=== PATIENT | female | born 1975 ===

== ENCOUNTER 2018-05-10 06:41 | Inpatient (IN) | payer MEDICAID, OTHER ==
[2017-06-16 09:51] VITALS: BMI 44.9
[2018-05-10] MEDS: Lactated Ringer's 1,000 ML IV SCH (14:30)
[2018-05-10 15:12] LABS: BASO % 0.1 % (0.0-2.0); EOS % 0.5 % (0.0-4.0); HEMOGLOBIN 12.7 g/dL (11.0-16.0); LYMPH # 1.5 K/uL (1.0-4.3); LYMPH % 17.5 % (20.0-40.0); MEAN CELL VOLUME 82.3 fL (81.0-99.0); MEAN CORPUSCULAR HEMOGLOBIN 28.2 pg (27.0-31.0); MEAN CORPUSCULAR HGB CONC 34.3 g/dL (33.0-37.0); MEAN PLATELET VOLUME 8.6 fL (7.2-11.7); MONO # 0.4 K/uL (0.0-0.8); MONO % 4.4 % (0.0-10.0); NEUT # 6.8 K/uL (1.8-7.0); NEUT % 77.5 % (50.0-75.0); NRBC % 0.1 % (0.0-2.0); RBC 4.5 Mil/uL (3.80-5.20); RED CELL DISTRIBUTION WIDTH 15.6 % (11.5-14.5); WHITE BLOOD COUNT 8.8 K/uL (4.8-10.8)
[2018-05-10 15:19] LABS: SQUAMOUS EPITHIAL 8 /hpf (0-5); URINE BACTERIA MANY (<OCC); URINE BILIRUBIN NEGATIVE (NEGATIVE); URINE BLOOD 1+ (NEGATIVE); URINE CLARITY Hazy (Clear); URINE COLOR Yellow (YELLOW); URINE GLUCOSE (UA) NORMAL (Normal); URINE LEUKOCYTE ESTERASE 3+ Leu/uL (Negative); URINE PROTEIN NEGATIVE (NEGATIVE); URINE UROBILINOGEN NORMAL mg/dL (0.2-1.0)
[2018-05-10 15:27] LABS: ALBUMIN 3.4 g/dL (3.5-5.0); ALT/SGPT 14 U/L (9-52); AST/SGOT 19 U/L (14-36); BLOOD UREA NITROGEN 9 mg/dL (7-17); CALCIUM 9.7 mg/dl (8.6-10.4); GFR NON-AFRICAN AMERICAN > 60
[2018-05-10] MEDS ORDERED: Penicillin G 5 Million Unit Vial IVPB ONE ×2 (17:01→17:24)
--- NOTE | 2018-05-10 21:14 | OBHP ---
Datetime: 05/10/2018 16:06 IP Adm Impression: Postterm, intrauterine ; No Active Labor; Intact Membranes IP Admit Plan: Admit to unit; Initiate labor induction protocol Admit Comment, IP Provider: Scheduled for IOL for Postdates but did not come until afternoon hours w ith c/o of L sided pain HPI: Patient is a 42 year old female , LMP 07/27/17 with TIMOTHY 05/05/18 who presents for left lower back pain that started at 7pm last night. She states she was helping bathe her 2 year old chil d, when her pain started last night. She states she has had movement. Denies vaginal bleeding, loss of fluid. She denies contractions at this time. POBhx: Had 8 children, aged 21, 19, 17, 14, 11, 8, 4, 2.5 PGYNhx: LMP 07/27/17 Age of menarche 16, length of cycles average 28 days, lasts 4-5 days. Denies history of ovarian cysts or fibroids, Denies abnormal Pap smears, Denies history of STIs. Allergies: NKDA Medications: vitamins PMH: none PSH: none Family hx: Mother aged 70, healthy, Father Social hx: Denies tobacco, alcohol, drug use. Lives with her 5 kids and . ROS: denies fevers, chills, headache, dizziness, chest pain, shortness of breath, nausea, vomiting , leg pain, leg swelling. Assessment 42year old female with LMP 07/27/17 with TIMOTHY of 05/05/18 admitted for IOL for posdates Grandmultiparity Plan Admit to unit for IOL for postdates Unfavorable cervix and will cervidil for cervical ripening NST reactive Pelvic Type - PN: Adequate Extremities - PN: Normal Abdomen - PN: Normal Back - PN: Normal Breast - PN: Not Done Lungs - PN: Normal Heart - PN: Normal Thyroid - PN: Normal Neurologic - PN: Normal HEENT - PN: Normal General - PN: Normal Presentation-Admit: Vertex FHR - Baseline A Provider: 150 Membranes, Provider: Intact Contraction Comments Provider: Ocassional Comments, ACOG Physical Exam: Fundal height consistent with gestational age Gestation - Est Wks by US: 41.0 IP Hx Assessment: The History has been Reviewed and is Current EGA AdmitDate IP: 41.0 Vital Signs Provider: Reviewed; Within Normal Limits IP Chief Complaint: Scheduled induction of labor; Maternal discomfort NICHD Variability Prov Fetus A: Moderate 6-25bpm NICHD Accel Fetus A IP Provider: [id number] FHR Category Provider Fetus A: Category I NICHD Decel Fetus A IP Provider: None; Variable Dilatation, Provider: 2 Effacement, Provider: 30 Station, Provider: -3 Genitourinary Exam: Normal DTRs - PN: Normal
[2018-05-11] MEDS: Lactated Ringer's 1,000 ML IV SCH (04:10)
[2018-05-11] MEDS ORDERED: Nalbuphine HCL 10 mg/ml Ampule ONE (05:08)
[2018-05-11] MEDS ORDERED: Nalbuphine HCL 10 mg/ml Ampule IVP ONE (05:11)
[2018-05-11] MEDS ORDERED: Oxycodone/Acetaminophen 5/325 mg Tab PO PRN (06:37)
--- NOTE | 2018-05-11 06:55 | OBDS ---
DELIVERY PERSONNEL Delivery Doctor: Timoteo Jefferson MD Promotions Representative: Mary Jane Philip RN MATERNAL INFORMATION Delivery Anesthesia: None Medications in Delivery: Pitocin 20 units IV Estimated Blood Loss (ml): 200 mls Maternal Complications: None Provider Comments: of a viable Female from TOSHIA position and over an intact perineum. Apg ars 9_9 and BW 8lbs, 11 oz. EBL 200 Placenta and cord blood obtained and sent Pt and both tolerated the procedure well and remained in S_S condition LABOR SUMMARY EDC: 05/03/2018 00:00 No. Babies in Womb: 1 Attempted: No Labor Anesthesia: IV Sedation LABOR INFORMATION Reason for Induction: Postterm Onset of Labor: 05/11/2018 00:00 Complete Dilatation: 05/11/2018 05:45 Cervical Ripening Agents: Cervidil Oxytocin: N/A Group B Beta Strep: Positive Antibiotics # of Doses: 3 Antibiotics Time of Last Dose: 0400 Steroids Given: None Reason Steroids Not Administered: Not Applicable MEMBRANES Membranes Rupture Method: Spontaneous Rupture of Membranes: 05/11/2018 05:59 Length of Rupture (hrs): 0.00 Amniotic Fluid Color: Clear Amniotic Fluid Amount: Small STAGES OF LABOR Stage 1 hrs: 5 Stage 1 min: 45 Stage 2 hrs: 0 Stage 2 min: 14 Stage 3 hrs: 0 Stage 3 min: 1 Total Time in Labor hrs: 6 Total Time in Labor min: 0 VAGINAL DELIVERY Episiotomy: None Laceration Extension: N/A Laceration Type: None Initial Vag Sponge Count: 10 Final Vag Sponge Count: 10 Initial Vag Sharps Count: 0 Final Vag Sharps Count: 0 Sponge Count Correct: Yes; Vaginal Sweep Performed Sharps Count Correct: N/A BABY A INFORMATION Delivery Date/Time: 05/11/2018 05:59 Method of Delivery: Vaginal Born in Route : No : N/A Forceps: N/A Vacuum Extraction: N/A Shoulder Dystocia : No SHOULDER DYSTOCIA BABY A Infant Delivery Date/Time: 05/11/2018 05:59 PRESENTATION/POSITION BABY A Presentation: Cephalic Cephalic Presentation: Vertex PLACENTA INFORMATION BABY A Placenta Delivery Time : 05/11/2018 06:00 Placenta Method of Delivery: Spontaneous Placenta Status: Delivered SCORES BABY A Heart Rate 1 min: >100 bpm Resp Effort 1 min: Good Cry Reflex Irritability 1 min: Cough or Sneeze or Pulls Away Muscle Tone 1 min: Active Motion Color 1 min: Body [place], Extremities Blue SCORE 1 MIN: 9 Heart Rate 5 min: >100 bpm Resp Effort 5 min: Good Cry Reflex Irritability 5 min: Cough or Sneeze or Pulls Away Muscle Tone 5 min: Active Motion Color 5 min: Body [place], Extremities Blue SCORE 5 MIN: 9 INFANT INFORMATION BABY A Gestational Age at Delivery: 41.0 Gestational Status: Post-term Outcome : Liveborn Condition : Stable Infant Sex: Female IDENTIFICATION/MEDS BABY A ID Band Number: [id number] ID Band Location: Left Leg; Left Arm Sensor Applied: Yes Sensor Number: [id number] Sensor Location : Taped to Bed Vitamin K Given : Aquamephyton 1 mg IM; Left Thigh Erythromycin Given: Given Both Eyes WEIGHT/LENGTH BABY A Infant Birthweight (gms): 3955 Infant Weight (lb): 8 Infant Weight (oz): 11 Length Inches: 20.00 Infant Length cms: 50.8 CORD INFORMATION BABY A No. Cord Vessels: 3 Nuchal Cord : N/A Cord Blood Taken: Yes Infant Suction: Mouth ASSESSMENT BABY A Complications: None Physical Findings at Delivery: Within Normal Limits Respirations: Appears Normal Engineering Operator/ALS Called : Yes Infant Care By: DR UNDERWOOD Transferred To: Remains with Mother
[2018-05-11] MEDS: Multiple Vitamins Tab PO SCH (10:03)
[2018-05-12 07:17] LABS: BASO # 0.1 K/uL (0.0-0.2); BASO % 0.7 % (0.0-2.0); EOS # 0.1 K/uL (0.0-0.7); EOS % 1.3 % (0.0-4.0); HEMOGLOBIN 12.9 g/dL (11.0-16.0); LYMPH # 2.4 K/uL (1.0-4.3); LYMPH % 27.2 % (20.0-40.0); MEAN CELL VOLUME 82.6 fL (81.0-99.0); MEAN CORPUSCULAR HEMOGLOBIN 28.2 pg (27.0-31.0); MEAN CORPUSCULAR HGB CONC 34.1 g/dL (33.0-37.0); MEAN PLATELET VOLUME 8.1 fL (7.2-11.7); MONO # 0.4 K/uL (0.0-0.8); MONO % 4.2 % (0.0-10.0); NEUT # 5.8 K/uL (1.8-7.0); NEUT % 66.6 % (50.0-75.0); RBC 4.58 Mil/uL (3.80-5.20); RED CELL DISTRIBUTION WIDTH 15.9 % (11.5-14.5); WHITE BLOOD COUNT 8.8 K/uL (4.8-10.8)
[2018-05-12] MEDS: Multiple Vitamins Tab PO SCH (09:37)
--- NOTE | 2018-05-12 12:15 | OBPPN ---
Datetime: 05/12/2018 08:24 PP Pain Prov: Within normal limits PP Nausea Prov: Denies PP Flatus Prov: Yes PP BM Prov: No PP Breasts Prov: Normal PP Heart Prov: Normal PP Lungs Prov: Normal PP Abdomen/Uterus Prov: Normal PP Lochia Prov: Normal PP Vulva/Perineum Prov: Not Done PP CVA Tenderness Prov: Normal PP Comments Phys Exam Prov: Abdomen soft, nontender. Bowel sounds present. Fundus at the level of um bilicus. Uterus firm, nontender. PP Impression Prov: Normal progression PP Plan Prov: Continue present management PP Progress Note Prov: PPD1 Patient seen and examined at bedside. Patient complains of pain when she breastfeeds her baby. Jessica n well controlled currently. Patient tolerating regular diet. She is currently breast feeding, howeve r she feels as though she would like to bottle feed as well. She described moderate lochia. She adan es nausea, vomiting. She denies calf pain, chest pain, shortness of breath, fevers, chills. She admit s she had some sacral pain that she has had for the past month or so. She states she would like to malcolm ve her tubes tied for future contraception. A/P 42year old at 41 weeks s/p with PPD1 1. Vitals stable 2. labs reviewd, repeat tomorrow morning ordered 3. Encourage ambulation, breast feeding, however may switch to bottle feeding as necessary 4. Complete pelvic rest advised. 5. Patient encouraged to follow up with OB regarding tubal ligation Case discussed with Dr. Suzie Alejandre, PGY1 I have personally seen and examined the patient with resident. I agree with the above notation. continue routine post care Suzie Mhaoney - in house service attending. IP PP Procedures: None Vital Signs Provider PP: Reviewed; Within Normal Limits
[2018-05-13 00:11] VITALS: O2SAT 99
[2018-05-13 07:18] LABS: BASO % 0.4 % (0.0-2.0); EOS # 0.2 K/uL (0.0-0.7); EOS % 2.4 % (0.0-4.0); HEMOGLOBIN 12.5 g/dL (11.0-16.0); LYMPH % 25.5 % (20.0-40.0); MEAN CELL VOLUME 82.9 fL (81.0-99.0); MEAN CORPUSCULAR HEMOGLOBIN 28.4 pg (27.0-31.0); MEAN CORPUSCULAR HGB CONC 34.3 g/dL (33.0-37.0); MONO # 0.3 K/uL (0.0-0.8); MONO % 4.3 % (0.0-10.0); NEUT # 5.4 K/uL (1.8-7.0); NEUT % 67.4 % (50.0-75.0); NRBC % 0.1 % (0.0-2.0); RBC 4.41 Mil/uL (3.80-5.20)
[2018-05-13] MEDS: Multiple Vitamins Tab PO SCH (09:12)
--- NOTE | 2018-05-13 10:21 | OBDCSUM ---
Datetime: 05/13/2018 10:18 Discharged to, Provider: Home Follow up at, Provider: clinic Disch Instr Activity: Normal activity Disch Instr Diet: Regular Discharge Instructions, Provider: Routine instructions given Discharge Diagnosis, Provider: Term Delivered Discharge Time: 05/13/2018 10:18 Follow up in weeks, Provider: Kendrick Verdin Referrals: None Contraception discussed, Prov: Yes Disch Activity Restrictions: No sexual activity; Nothing in vagina - [place], tampons, douche Discharge Comment, Provider: nya yeboah Contraception after Delivery: Not Planning to Use
--- NOTE | 2018-05-13 10:21 | OBPPN ---
Datetime: 05/13/2018 10:18 PP Pain Prov: Within normal limits PP Nausea Prov: Denies PP Flatus Prov: Yes PP BM Prov: No PP Breasts Prov: Normal PP Heart Prov: Normal PP Lungs Prov: Normal PP Abdomen/Uterus Prov: Normal PP Lochia Prov: Normal PP Vulva/Perineum Prov: Normal PP CVA Tenderness Prov: Normal PP Extremities Prov: Normal PP C/S Incision Prov: Not Applicable PP Progress Prov: Normal PP Impression Prov: Normal progression PP Plan Prov: Continue present management; Discharge PP Progress Note Prov: pt seen adn examiend preort pain contorlled, ambuting, voidng, passign flatus , no BM, otleratign regualr diet withotu nause, vomitng, cp, sob, urinary complaint. pt is breat and bottel feedign and denies any sadness or depression VSS PE gen :N nad AAO x 3 RESP Ctab/l CVS: rrr, +S1/S2 BREAST: sot, NT, non enroged b/l ABD: soft, NT/ND, +BS, no guaridng, no rebound tendnerss, no rigdity FUNDUS: Firm, belwo level of umbiclus VE: minmal lochai, non fusl smelling EX:T negative jamal's sign, no calf tendnerness A/P S/p PPD #2 doignw ell dc home f/u clinic 6 week precation givne IP PP Procedures: None Vital Signs Provider PP: Reviewed; Within Normal Limits
[2018-05-13] MEDS ORDERED: Influenza Vaccine 60 MCG/0.5 ML SYR (3 yr & up) IM ONE (11:37)
[2018-05-13 11:44] VITALS: BP 108/78; PULSE 88; RESP 18; TEMP 97.2
== END 2018-05-13 18:30 | disposition home or self-care (01) | DRG 560 ==
LOC: C.4D 13:20 → C.4M 05-11 09:54
PROVIDERS: ADMIT Obstetrics & Gynecology; ATTEND Obstetrics & Gynecology
PROC: 3E0P7VZ Introduction of Hormone into Female Reproductive, Via Natural or Artificial Opening (ICD-10-PCS; 2018-05-10)
PROC: 10E0XZZ Delivery of Products of Conception, External Approach (ICD-10-PCS; principal; 2018-05-11)
DX: O48.0 Post-term pregnancy (principal); O99.824 Streptococcus B carrier state complicating childbirth; Z3A.41 41 weeks gestation of pregnancy; Z37.0 Single live birth

== ENCOUNTER 2018-10-15 17:54 | Emergency (ER) | payer SELFPAY ==
[2018-10-15 17:54] VITALS: BMI 44.9
[2018-10-15 18:10] VITALS: BP 106/73; PULSE 72; RESP 20; TEMP 98.3; O2SAT 98
[2018-10-15] MEDS ORDERED: Naproxen 550 mg Tab PO STA (19:09)
[2018-10-15] MEDS ORDERED: Naproxen 550 mg Tab PO ONE (19:22)
[2018-10-15 20:01] LABS: SQUAMOUS EPITHIAL 6 /hpf (0-5); URINE BACTERIA RARE (<OCC); URINE BILIRUBIN NEGATIVE (NEGATIVE); URINE BLOOD NEGATIVE (NEGATIVE); URINE CLARITY Hazy (Clear); URINE COLOR Yellow (YELLOW); URINE GLUCOSE (UA) NORMAL (Normal); URINE LEUKOCYTE ESTERASE NEG Leu/uL (Negative); URINE PROTEIN NEGATIVE (NEGATIVE)
--- NOTE | 2018-10-15 21:12 | C.PDOC ---
History Of Present Illness The patient reports that she has been experiencing pain to the left hip and knee over the past 1 week. Patient reports that she slipped and fell in the snow and the pain progressively worsened over the past week. The patient is able to ambulatory but worsened with pain. Denies numbness or weakness. Time Seen by Provider: 10/15/18 18:49 Chief Complaint (Nursing): Lower Extremity Problem/Injury History Per: Patient History/Exam Limitations: no limitations Onset/Duration Of Symptoms: Days, Gradual, Persistent Current Symptoms Are (Timing): Still Present Pain Scale Rating Of: 6 Recent travel outside of the [place]: No Past Medical History Vital Signs: Last Vital Signs Temp 98.3 F 10/15/18 18:05 Pulse 72 10/15/18 18:05 Resp 20 10/15/18 18:05 BP 106/73 10/15/18 18:05 Pulse Ox 98 10/15/18 18:05 - Medical History PMH: No Chronic Diseases Denies: Depression, Diabetes, HTN Surgical History: No Surg Hx - [facility] Procedures (05/10/18) DELIVERY OF PRODUCTS OF CONCEPTION, EXTERNAL APPROACH (05/10/18) Family History: States: No Known Family Hx, Unknown Family Hx - Social History Hx Tobacco Use: No Hx Alcohol Use: No Hx Substance Use: No - Immunization History Hx Tetanus Toxoid Vaccination: No Hx Influenza Vaccination: No Hx Pneumococcal Vaccination: No Review Of Systems Except As Marked, All Systems Reviewed And Found Negative. Physical Exam - Physical Exam Appears: Non-toxic, No Acute Distress Skin: Normal Color, Warm Head: Atraumatic, Normacephalic Eye(s): bilateral: Normal Inspection Oral Mucosa: Moist Neck: Normal ROM Chest: Symmetrical Respiratory: No Accessory Muscle Use Back: Normal Inspection, No CVA Tenderness, No Vertebral Tenderness, No Paraspinal Tenderness Extremity: Normal ROM, No Tenderness, Capillary Refill (< 2 sec), No Swelling, Other (pain with flexion of the left knee. Hips have FROM and non-tender) Pulses: Left Dorsalis Pedis: Normal, Right Dorsalis Pedis: Normal Neurological/Psych: Oriented x3, Normal Motor, Normal Sensation Gait: Steady ED Course And Treatment - Laboratory Results Lab Results: Urine Color Yellow (YELLOW) 10/15/18 19:34 Urine Clarity Hazy (Clear) 10/15/18 19:34 Urine pH 5.0 (5.0-8.0) 10/15/18 19:34 Ur Specific [place] 1.023 (1.003-1.030) 10/15/18 19:34 Urine Protein Negative mg/dL (NEGATIVE) 10/15/18 19:34 Urine Glucose (UA) Normal mg/dL (Normal) 10/15/18 19:34 Urine Ketones Negative mg/dL (NEGATIVE) 10/15/18 19:34 Urine Blood Negative (NEGATIVE) 10/15/18 19:34 Urine Nitrate Negative (NEGATIVE) 10/15/18 19:34 Urine Bilirubin Negative (NEGATIVE) 10/15/18 19:34 Urine Urobilinogen 2.0 mg/dL (0.2-1.0) H 10/15/18 19:34 Ur Leukocyte Esterase Neg Geo/uL (Negative) 10/15/18 19:34 Urine WBC (Auto) 1 /hpf (0-5) 10/15/18 19:34 Urine RBC (Auto) 1 /hpf (0-3) 10/15/18 19:34 Ur Squamous Epith Cells 6 /hpf (0-5) H 10/15/18 19:34 Urine Bacteria Rare (<OCC) 10/15/18 19:34 Hyaline Casts 3-5 /lpf (0-2) H 10/15/18 19:34 O2 Sat by Pulse Oximetry: 98 (on Ra) Pulse Ox Interpretation: Normal Medical Decision Making Medical Decision Making: Xrays are negative for fracture On re-exam, the patient reports improvement of symptoms. Lungs are CTA, heart is RRR, abdomen is soft, non-tender and tolerating PO well. Pt ambulatory in the ED with steady gait. Patient refuses crutches at this time. Follow up with the medical doctor within 1-2 days. return if worsened. Disposition - Disposition Referrals: Jt Owens MD [Staff Provider] - [facility] [Outside] Disposition: HOME/ ROUTINE Disposition Time: 21:09 Condition: GOOD Additional Instructions: Follow up with the medical doctor within 1-2 days. return if worsened. Prescriptions: Acetaminophen [Tylenol] 325 mg PO Q6 PRN #30 tab PRN Reason: Pain, Mild (1-3) Naproxen [Naprosyn] 500 mg PO BID #20 tab predniSONE [Prednisone] 10 mg PO BID #10 tab Instructions: Contusion (DC), Knee Sprain (DC) Forms: [employer]OS Online Backup (Lao) - Clinical Impression Clinical Impression: Contusion, hip, Knee sprain
--- NOTE | 2018-10-15 21:34 | RAD ---
Left knee three views HISTORY: Injury. Comparison: None available. FINDINGS: No evidence of acute displaced fracture or dislocation. No significant suprapatellar joint effusion. Impression: Negative acute. If pain persists, consider MRI.
--- NOTE | 2018-10-15 21:41 | RAD ---
Pelvis and left hip two views HISTORY: Pain. Comparison: None available. FINDINGS: Left hip: No evidence of acute displaced fracture or dislocation. Sclerosis at the pubic symphysis. Remainder of the bony pelvis appears grossly preserved. Impression: Negative acute. If pain persists, consider MRI.
== END 2018-10-15 21:18 | disposition home or self-care (01) ==
LOC: C.ER 17:54
DX: S70.02XA Contusion of left hip, initial encounter (principal); S83.92XA Sprain of unspecified site of left knee, initial encounter; W00.0XXA Fall on same level due to ice and snow, initial encounter